=== PATIENT | male | born 1980 | race African-American/Black ===

== ENCOUNTER 2020-12-30 07:36 | Emergency (ER) | payer OTHER ==
[~2020-12-30] VITALS: Ht 172.7 cm; Wt 86.2 kg
--- NOTE | 2020-12-30 07:45 | NUR ---
pt [id number] accompanied by Pd. per ems/pd repor patient was noted to be acting bizzare and paranoid at a gas station claiming that people might be trying to kill him. states he was running away from them and is afraid for his life. pt did admit to meth use but denies SI/HI. pt is verbally responsive and cooperative to ed staff. PD at bedside. awaiting md conteh.
--- NOTE | 2020-12-30 08:06 | NUR ---
dr rey at bedside for eval.
[2020-12-30] MEDS ORDERED: LORAZEPAM 1 MG TABLET ONE (08:20)
[2020-12-30] MEDS ORDERED: LORAZEPAM 1 MG TABLET PO ONE (08:30)
--- NOTE | 2020-12-30 08:31 | NUR ---
medicated as ordered. see emar.
--- NOTE | 2020-12-30 11:00 | NUR ---
"SS Consult: SS Consult requested for drug use, homelessness & symptoms of paranoia. Per MD note, patient is brought in by police. Patient was having bizarre behavior at a gas station. The pt. is a 40-year old male. The pt. is A&O X 4 and makes appropriate eye contact. The pt.s mood is anxious with distressed affect & paranoid persecutory delusions. Patient stated that drug users are after him and have threatened to kill him. Pt. stated he does not feel safe. Pt. stated that he will hurt himself if he does not have a safe place to stay. Pt.s stated that he has no clear plan however, if he is discharged today to self he will hurt himself/ attempt suicide. FLACO offered pt. to go voluntary to psychiatric facility for dual diagnosis. Pt. is agreeable. Pt. stated that he is homeless as he left from [facility] about 2 weeks ago and has been using Meth since. Per pt. he smokes Meth about every other day. FLACO provided pt. with Homeless resources and pt. accepted them. Pt. signed homeless waiver and was placed in the chart. FLACO explored pt.s support system. Pt. stated his nephew Jam [phone] and his sober sponsor for 12 step program, Cristopher Kumari [phone] are in his life. Pt. stated that he last saw a psychiatrist about 1 month ago who prescribed him Lexapro, however, per pt. he has not been compliant with medications. Pt. stated that he receives food stamps and has no other financial assistance. SW will be available as needed. Plan: FLACO will refer pt. to [facility] for treatment. Flaco will refer pt. to [email or web address]; [email or web address] for [facility] bed or Residential Treatment Program. Pt. signed homeless waiver placed in chart. FLACO provided pt. with the following resources: Substance Abuse resources provided included: [facility] Substance Abuse Self-Helpline ([facility]) ; [facility] [address] [facility]. [place] [address] ; [facility] [id number] [place] [address] ; [facility] [address] [place]. [place] [id number] ; [facility] [address] [facility] [address] ; [facility] Treatment [facility] [address] [facility] [address] ; [facility] [address] [id number] ; [facility] Substance Abuse Helpline([facility])-[facility] ; [facility] ; [facility] [place]; [facility] [place]; [facility] [place]; [facility]; [facility] [place]; [place] [facility] [place]; [facility] [place]; [facility] [place]; Alcoholics Anonymous -SFV; Rk-Fjtk-Uqutpql ; Marijuana Anonymous -SFV; Narcotics Anonymous www.na.org. Year-round shelters: [facility] [address] [place] [address] ; [facility] [address] [place] [address]; [facility] [id number] [facility] [address] Winter Shelters: Jakob Bro Provider: [facility] [place] Address: [address]. [place], [address] # of Beds: 47 Population Served: Coed SPA 6 | [facility] Yoanna Ledezma Adali Provider: [facility] Address: [address] [facility], [address] # of Beds: 66 Population Served: Zayd Clara [place] Provider: [facility] Serve Address: [address] [facility], [address] # of Beds: 56 Population Served: Zayd Emmett [place] Provider: [facility]. [facility] Address: [address] [facility], [address] # of Beds: 49 Population Served: Coed SPA 8 | [place] Provider: First to Serve Address: [address] [facility]. [place], [address] # of Beds: 37 Population Served: Coe Hygiene: [facility]: [address] [place] ; [facility] [address] [facility] ; [facility] [address] [place] . Food Resources: [facility] at [facility]- [address] [facility]; Meet Each Need with Dignity ([facility]) [address] [facility]; [facility] Food Pantry [address] [facility]; [facility] [address] [facility]. Mental Health resources provided: [facility] [address] [place], [place] [id number] ; [facility] [address] [facility] [address], [place] [address] ; Francesca Pretty [facility] [address] [place] [address] ; [facility] [address] [place], [place] [id number] Healthcare Clinics: [facility] [address] [facility] [place]. [place] ; [facility] [address] [facility] [address] [place] [address]; [facility] [id number] [place] [address]. [place] [address] [phone]"
--- NOTE | 2020-12-30 11:00 | NUR ---
reji ROBLES at bedside talking to patient.
--- NOTE | 2020-12-30 12:14 | NUR ---
PT ACCEPTED TO [facility] [address] [facility] [address] READY AT 1430 CALL [phone] JOSS CALLED LEFT MSG TO LET US KNOW WHO THE ACCEPTING DOCTOR IS.
--- NOTE | 2020-12-30 12:19 | NUR ---
TRAVIS received a call from Vicki [phone] stating that the pt. was accepted at [facility] [[address] [address]] for psychiatric stabilization prior to being admitted to their Residential Program. Per Vicki, pt. should arrive at [[address] [address]] by 1430 and will be assigned an accepting physician at upon arrival. TRAVIS notified Doug Currie to arrange transportation. TRAVIS will be available as needed.
[2020-12-30 12:39] LABS: BASOPHILS # (AUTO) 0.1 /CMM (0.0-0.2); EOSINOPHILS % (AUTO) 0.5 % (0.0-6.0); HEMATOCRIT 43 % (39-51); HEMOGLOBIN 14.5 g/dL (13.5-17.5); LYMPHOCYTES # (AUTO) 2.6 /CMM (0.8-4.8); LYMPHOCYTES % (AUTO) 18.1 % (20.0-44.0); MEAN CORPUSCULAR HGB CONC 34 g/dl (31.0-36.0); MEAN CORPUSCULAR VOLUME 94 fL (80-96); MONOCYTES # (AUTO) 1.1 /CMM (0.1-1.30); MONOCYTES % (AUTO) 7.4 % (2.0-12.0); NEUTROPHILS # (AUTO) 10.7 /CMM (1.8-8.9); PLATELET COUNT (AUTO) 188 /CMM (150-450); RED BLOOD CELL COUNT(AUTO) 4.59 MIL/uL (4.5-6.0); WHITE BLOOD COUNT (AUTO) 14.6 K/uL (4.3-11.0)
[2020-12-30 12:59] LABS: ALANINE AMINOTRANSFERASE 35 U/L (12-78); ALBUMIN 3.9 g/dL (3.4-5.0); ALCOHOL, BLOOD < 3 mg/dL (0-0); ALKALINE PHOSPHATASE 55 U/L (46-116); ASPARTATE AMINOTRANSFERASE 45 U/L (15-37); BILIRUBIN,DIRECT 0.2 mg/dL (0.0-0.2); BILIRUBIN,TOTAL 0.8 mg/dL (0.2-1.0); CALCIUM, SERUM 8.7 mg/dL (8.5-10.1); CARBON DIOXIDE 25 mmol/L (21-32); CHLORIDE 101 mmol/L (98-107); CREATININE 1.1 mg/dL (0.6-1.3); GLUCOSE 80 mg/dL (74-106); POTASSIUM 3.3 mmol/L (3.5-5.1); SODIUM SERUM 138 mmol/L (136-145); TOTAL PROTEIN, SERUM 7.2 g/dL (6.4-8.2); UREA NITROGEN, BLOOD 15 mg/dL (7-18)
[2020-12-30 13:49] LABS: ACETAMINOPHEN 0 ug/ml (10-30)
--- NOTE | 2020-12-30 14:27 | NUR ---
COVID NEGATIVE PER LAB.
[2020-12-30 14:43] LABS: BILIRUBIN,URINE SMALL (NEGATIVE); COLOR,URINE YELLOW (YELLOW); LEUKOCYTE ESTERASE ,URINE Negative (NEGATIVE); NITRITE, URINE Negative (NEGATIVE); PH,URINE 5.5 (5.0-8.0); PROTEIN,URINE Trace mg/dl (NEGATIVE); UGLUCOSE Negative (NEGATIVE)
--- NOTE | 2020-12-30 14:49 | NUR ---
transport called eta is 15 mins apa
[2020-12-30 15:25] VITALS: BP 132/65
--- NOTE | 2020-12-30 15:25 | NUR ---
transported to [facility] stable condition.
[2020-12-30 19:51] LABS: BACTERIA,URINE None seen /HPF (None Seen); RBC,URINE 0-2 /HPF (0-2); SQUAMOUS EPITHELIAL CELL,UR Few /HPF (None Seen); WBC,URINE 0-2 /HPF (0-3)
== END 2020-12-30 15:26 ==
LOC: ER 07:43
DX: T43.621A Poisoning by amphetamines, accidental (unintentional), initial encounter (principal); F06.2 Psychotic disorder with delusions due to known physiological condition; F15.10 Other stimulant abuse, uncomplicated; Y92.524 Gas station as the place of occurrence of the external cause; Z20.822 Contact with and (suspected) exposure to COVID-19
CPT/HCPCS: 36415; 80048; 80076; 80299; 80307; 80320; 81001; 85025; 87426; 99285; C9803; G0480